=== PATIENT | male | born 1965 | race Caucasian/White ===

== ENCOUNTER 2021-08-19 08:45 | Emergency (ER) | payer BC, OTHER ==
[~2021-08-19] VITALS: Ht 180.3 cm; Wt 87.1 kg
[~2021-08-19 08:45] MED LIST: AMLO-150 PO; HYDR-3237 PO; LEVO750T26 PO; SIMV20TA19 PO
[2021-08-19] MEDS ORDERED: ASPIRIN 81 MG TABLET CHEW PO ONE (09:00)
[2021-08-19 09:33] LABS: BASOPHILS % (AUTO) 0 % (0-1); EOSINOPHILS % (AUTO) 1 % (1-7); LYMPHOCYTES % (AUTO) 20 % (22-44); MEAN CORPUSCULAR HEMOGLOBIN 29.9 pg (27.5-34.5); MEAN PLATELET VOLUME 7.1 fL (7.4-10.4); MONOCYTES % (AUTO) 6 % (2-9); NEUTROPHILS % (AUTO) 73 % (42-75); PLATELET COUNT 314 x10^3/uL (130-400); RED BLOOD COUNT 6.15 x10^6/uL (4.38-5.82); RED CELL DISTRIBUTION WIDTH 13.3 % (9.4-14.8)
[2021-08-19 09:45] LABS: CHLORIDE 108 mmol/L (98-107)
[2021-08-19 09:54] LABS: ALANINE AMINOTRANSFERASE 18 U/L (12-78); ALKALINE PHOSPHATASE 86 U/L (45-117); ANION GAP 7 mmol/L (5-15); BILIRUBIN,TOTAL 0.6 mg/dL (0.2-1.0); CALCIUM 9.4 mg/dL (8.5-10.1); CREATININE 0.88 mg/dL (0.7-1.3); TOTAL PROTEIN 8.5 g/dL (6.4-8.2); TROPONIN I < 0.015 ng/mL (0.000-0.045)
--- NOTE | 2021-08-19 10:23 | NUR ---
mems engineer note: Pt to room from lobby.
[2021-08-19] MEDS ORDERED: ASPIRIN 81 MG TABLET CHEW ONE (10:53)
[2021-08-19] MEDS ORDERED: ENALAPRILAT 1.25 MG/ML, 2ML ONE (10:53)
[2021-08-19] MEDS ORDERED: ENALAPRILAT 1.25 MG/ML, 2ML IV ONE (11:00)
[2021-08-19] MEDS ORDERED: SODIUM CHLORIDE FLUSH 10ML SYR IVF ONE (11:00)
[2021-08-19 11:30] VITALS: BP 146/81
== END 2021-08-19 12:27 | disposition home or self-care (01) ==
LOC: ED 11:27
DX: R07.89 Other chest pain (principal); I10 Essential (primary) hypertension; F17.200 Nicotine dependence, unspecified, uncomplicated
CPT/HCPCS: 36415; 71045; 80053; 84443; 84484; 85025; 93005; 96374; 99285

== ENCOUNTER 2021-08-23 18:53 | Emergency (ER) | payer SELFPAY ==
[~2021-08-23] VITALS: Ht 180.3 cm; Wt 90.4 kg
--- NOTE | 2021-08-23 19:08 | NUR ---
SOB/LEFT CHEST PAIN WHILE AT REST AT 6PM. ALSO FELT IF HEART WAS RACING VITAL STABLE EN ROUTE PLACED ON EQUIPMENT APPLICATION SPECIALIST ECG OBTAINED SEEN HER FOR NEARLY THE SAME ON FRIDAY-DX WITH HYPERTENSION-STARTED ON LISINOPRIL -HAS BEEN COMPLIANT
[2021-08-23] MEDS ORDERED: SODIUM CHLORIDE FLUSH 10ML SYR IVF ONE (19:30)
[2021-08-23] MEDS ORDERED: ASPIRIN 81 MG TABLET CHEW PO ONE (19:30)
[2021-08-23 19:42] LABS: BASOPHILS % (AUTO) 1 % (0-1); EOSINOPHILS % (AUTO) 2 % (1-7); LYMPHOCYTES % (AUTO) 19 % (22-44); MEAN CORPUSCULAR HEMOGLOBIN 29.1 pg (27.5-34.5); MEAN CORPUSCULAR HGB CONC 33.7 g/dL (33.2-36.2); MEAN PLATELET VOLUME 7.3 fL (7.4-10.4); MONOCYTES % (AUTO) 8 % (2-9); NEUTROPHILS % (AUTO) 71 % (42-75); PLATELET COUNT 317 x10^3/uL (130-400); RED BLOOD COUNT 5.51 x10^6/uL (4.38-5.82); RED CELL DISTRIBUTION WIDTH 13.3 % (9.4-14.8)
[2021-08-23 19:53] LABS: ALBUMIN 3.5 g/dL (3.4-5.0); ANION GAP 6 mmol/L (5-15); CALCIUM 8.7 mg/dL (8.5-10.1); CHLORIDE 112 mmol/L (98-107)
[2021-08-23 19:58] LABS: ALANINE AMINOTRANSFERASE 20 U/L (12-78); ALKALINE PHOSPHATASE 72 U/L (45-117); BILIRUBIN,TOTAL 0.3 mg/dL (0.2-1.0); CREATININE 0.94 mg/dL (0.7-1.3); TOTAL PROTEIN 7.2 g/dL (6.4-8.2); TROPONIN I < 0.015 ng/mL (0.000-0.045)
[2021-08-23] MEDS ORDERED: ASPIRIN 81 MG TABLET CHEW ONE (20:01)
[2021-08-23 20:30] VITALS: BP 153/92
[2021-08-23] MEDS ORDERED: METOPROLOL SUCCINATE 25 MG TAB.ER.24H PO ONE (20:30)
[2021-08-23] MEDS ORDERED: METOPROLOL TARTRATE 25 MG TAB ONE (20:44)
--- NOTE | 2021-08-23 20:46 | NUR ---
ASPIRIN DEFERRED PATIENT TOOK 324MG 1 HOUR AGO METOPROLOL ORDERED FROM PHARMACY
--- NOTE | 2021-08-23 21:00 | NUR ---
ATTEMPTED TO CALL REPORT. INPATIENT RN UNAVAILABLE. WILL ATTEMPT TO CALL AGAIN Addendum: 08/23/21 at 2127 by BREEING DISREGARD PRIOR NOTE ABOUT CALLING REPORT.
--- NOTE | 2021-08-23 21:01 | NUR ---
MEDICATED PER EMAR UPDATED ON ESTIMATED POC
== END 2021-08-24 05:38 | disposition home or self-care (01) ==
LOC: ED 21:17
DX: R00.2 Palpitations (principal); R42 Dizziness and giddiness; R06.02 Shortness of breath; R07.89 Other chest pain; I10 Essential (primary) hypertension; F17.200 Nicotine dependence, unspecified, uncomplicated
CPT/HCPCS: 36415; 71045; 80053; 83880; 84484; 85025; 93005; 99285